=== PATIENT | female | born 1970 | race Caucasian/White ===

== ENCOUNTER 2018-10-10 17:57 | Emergency (ER) | payer BC ==
[2018-10-10 18:10] VITALS: BP 125/68; PULSE 97; TEMP 98.6; BMI 24.3
[2018-10-10] MEDS ORDERED: MAG HYDROX/AL HYDROX/SIMETH 30 ML UNIT-DOSE CUP PO ONE (18:12)
[2018-10-10] MEDS ORDERED: SODIUM CHLORIDE 1,000 ML IV STA (18:12)
[2018-10-10] MEDS ORDERED: ACETAMINOPHEN 1000 MG/100 ML VIAL (NON FORMULARY) IVPB ONE (18:12)
[2018-10-10] MEDS ORDERED: FAMOTIDINE 20 MG/50 ML IVPB 20 MG/50 ML MG IVPB ONE ×2 (18:12→18:24)
[2018-10-10] MEDS ORDERED: ONDANSETRON 4 MG/2 ML VIAL IVPB ONE (18:12)
[2018-10-10] MEDS ORDERED: ACETAMINOPHEN INJECTION 100 ML IVPB ONE (18:24)
[2018-10-10] MEDS ORDERED: ONDANSETRON 4 MG/2 ML VIAL ONE (18:24)
[2018-10-10] MEDS ORDERED: MAG HYDROX/AL HYDROX/SIMETH 30 ML UNIT-DOSE CUP ONE (18:24)
--- NOTE | 2018-10-10 18:40 | PDOC ---
History of Present Illness - General History Source: Patient Exam Limitations: No Limitations - History of Present Illness Initial Comments: 10/10/18 18:41 The patient is a 47 year old female with a significant past medical history of HTN who presents to the ED with several days of abdominal pain and vomiting since earlier today. 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 She states she went out last night with her girlfriends and had a couple of drinks. Patient developed multiple episodes of non bilious non bloody vomiting that started this morning. She also reports slight diarrhea this morning. The patient reports multiple days of epigastric pain. She states she took compazine earlier today with no relief of present symptoms. Patient reports a headache yesterday and took tylenol and benadryl, now resolved. Patient states she was recently prescribed amoxicillin by her dentist because she is scheduled for a dental procedure next week. Denies fever or chills. Denies chest pain or shortness of breath. Denies hematochezia. Denies nasal congestion or cough. Denies dysuria or change in urinary output. Denies any other symptoms. Surgical hx: , tonsillectomy, colectomy, right foot tendon repair ( 2017) PCP: Dr. Mcmahon <Ben Sainz - Last Filed: 10/10/18 18:41> - General History Source: Patient Exam Limitations: No Limitations <Anthony Leo - Last Filed: 10/10/18 18:47> - General Chief Complaint: Vomiting/Diarrhea Stated Complaint: VOMITING Time Seen by Provider: 10/10/18 18:12 Past History <Ben Sainz - Last Filed: 10/10/18 18:41> - Past Medical History COPD: No HTN: Yes Other medical history: GLUTEN INTOLERANT - Suicide/Smoking/Psychosocial Hx Smoking History: Never smoked Information on smoking cessation initiated: No Hx Alcohol Use: Yes (RARE) Drug/Substance Use Hx: No <Anthony Leo - Last Filed: 10/10/18 18:47> - Past Medical History Allergies/Adverse Reactions: Allergies Allergy/AdvReac Type Severity Reaction Status Date / Time gluten AdvReac Intermediate Verified 10/10/18 18:04 Home Medications: Ambulatory Orders Amlodipine Besylate 2.5 mg PO DAILY 12/28/18 Review of Systems - Review of Systems Able to Perform ROS?: Yes Comments:: 10/10/18 18:41 GENERAL/CONSTITUTIONAL: No fever or chills. No weakness. HEAD, EYES, EARS, NOSE AND THROAT: No change in vision. No ear pain or discharge. No sore throat. CARDIOVASCULAR: No chest pain or shortness of breath. RESPIRATORY: No cough, wheezing, or hemoptysis. GASTROINTESTINAL: abdominal pain, nausea, diarrhea, vomiting. No constipation. GENITOURINARY: No dysuria, frequency, or change in urination. MUSCULOSKELETAL: No joint or muscle swelling or pain. No neck or back pain. SKIN: No rash NEUROLOGIC: No headache, vertigo, loss of consciousness, or change in strength/ sensation. ENDOCRINE: No increased thirst. No abnormal weight change. HEMATOLOGIC/LYMPHATIC: No anemia, easy bleeding, or history of blood clots. ALLERGIC/IMMUNOLOGIC: No hives or skin allergy. All Other Systems: Reviewed and Negative <Ben Sainz - Last Filed: 10/10/18 18:41> *Physical Exam - Vital Signs Last Vital Signs Temp Pulse Resp BP Pulse Ox 98.6 F 97 H 18 125/68 100 10/10/18 18:04 10/10/18 18:04 10/10/18 18:04 10/10/18 18:04 10/10/18 18:04 - Physical Exam Comments: 10/10/18 18:42 GENERAL: Awake, alert, and fully oriented, in no acute distress HEAD: No signs of trauma EYES: PERRLA, EOMI, sclera anicteric, conjunctiva clear NECK: Normal ROM, supple, no lymphadenopathy, JVD, or masses ABDOMEN: + epigastric tenderness to palpation. Negative Nellis sign. Soft. No guarding, no rebound. No masses EXTREMITIES: Normal range of motion, no edema. No clubbing or cyanosis. No cords, erythema, or tenderness NEUROLOGICAL: Cranial nerves II through XII grossly intact. Normal speech, normal gait SKIN: Warm, Dry, normal turgor, no rashes or lesions noted. <Ben Sainz - Last Filed: 10/10/18 18:41> - Vital Signs Last Vital Signs Temp Pulse Resp BP Pulse Ox 98.6 F 97 H 18 125/68 100 10/10/18 18:04 10/10/18 18:04 10/10/18 18:04 10/10/18 18:04 10/10/18 18:04 <Anthony Leo - Last Filed: 10/10/18 18:47> Moderate Sedation - Procedure Monitoring Vital Signs: Procedure Monitoring Vital Signs Temperature 98.6 F 10/10/18 18:04 Pulse Rate 97 H 10/10/18 18:04 Respiratory Rate 18 10/10/18 18:04 Blood Pressure 125/68 10/10/18 18:04 O2 Sat by Pulse Oximetry (%) 100 10/10/18 18:04 <Ben Sainz - Last Filed: 10/10/18 18:41> - Procedure Monitoring Vital Signs: Procedure Monitoring Vital Signs Temperature 98.6 F 10/10/18 18:04 Pulse Rate 97 H 10/10/18 18:04 Respiratory Rate 18 10/10/18 18:04 Blood Pressure 125/68 10/10/18 18:04 O2 Sat by Pulse Oximetry (%) 100 10/10/18 18:04 <Anthony Leo - Last Filed: 10/10/18 18:47> ED Treatment Course - Medications Given in the ED: ED Medications Discontinued Medications Generic Name Dose Route Start Last Admin Trade Name Freq PRN Reason Stop Dose Admin Acetaminophen 1,000 mg 10/10/18 18:12 10/10/18 18:35 Ofirmev Injection - IVPB 10/10/18 18:13 1,000 mg ONCE ONE Administration Al Hydroxide/Mg Hydroxide 30 ml 10/10/18 18:12 10/10/18 18:30 Mylanta Oral Suspension - PO 10/10/18 18:13 30 ml ONCE ONE Administration Famotidine/Sodium Chloride 20 mg in 50 mls @ 100 mls/hr 10/10/18 18:12 18:29 Pepcid 20 Mg Premixed Ivpb - IVPB 10/10/18 18:41 100 mls/hr ONCE ONE Administration Ondansetron HCl 4 mg 10/10/18 18:12 10/10/18 18:26 Zofran Injection IVPB 10/10/18 18:13 4 mg ONCE ONE Administration <Ben Sainz - Last Filed: 10/10/18 18:41> - Medications Given in the ED: ED Medications Discontinued Medications Generic Name Dose Route Start Last Admin Trade Name Freq PRN Reason Stop Dose Admin Acetaminophen 1,000 mg 10/10/18 18:12 10/10/18 18:35 Ofirmev Injection - IVPB 10/10/18 18:13 1,000 mg ONCE ONE Administration Al Hydroxide/Mg Hydroxide 30 ml 10/10/18 18:12 10/10/18 18:30 Mylanta Oral Suspension - PO 10/10/18 18:13 30 ml ONCE ONE Administration Ondansetron HCl 4 mg 10/10/18 18:12 10/10/18 18:26 Zofran Injection IVPB 10/10/18 18:13 4 mg ONCE ONE Administration <Anthony Leo - Last Filed: 10/10/18 18:47> Medical Decision Making - Medical Decision Making 10/10/18 18:39 A portion of this note was documented by scribe services under my direction. I have reviewed the details of the note, within reason, and agree with the documentation with the following case summary and management plan written by me. Patient treated in the ED. Nursing notes are reviewed and incorporated into the medical decision-making. Vital signs reviewed. Peripheral IV access obtained by the nurse, laboratory studies are drawn and sent, reviewed and interpreted by myself. Vital Signs Temp Pulse Resp BP Pulse Ox 98.6 F 97 H 18 125/68 100 10/10/18 18:04 10/10/18 18:04 10/10/18 18:04 10/10/18 18:04 10/10/18 18:04 47-year-old female patient with past medical history of hypertension, cholecystectomy, section presents with 12 hours of nausea, vomiting and some loose stools. Patient reports that she's been exposed to multiple sick children. Yesterday, she went out with her girlfriends and had a few alcohol drinks. This morning, the patient has had numerous episodes of vomiting and no appetite. Denies fevers but does report some epigastric discomfort secondary to the vomiting. Denies dysuria hematuria. I suspect patient likely has viral gastroenteritis. We'll obtain labs, urine , urinalysis and treat with IV fluids and medications and reassess. 10/10/18 18:47 Pt signed out to oncoming ED attending Dr. Means for further management and disposition. <Anthony Leo - Last Filed: 10/10/18 18:47> *DC/Admit/Observation/Transfer - Attestations Scribe Attestion: 10/10/18 18:42 Documentation prepared by Ben Sainz, acting as medical record retrieval specialist for Anthony Leo MD <Ben Sainz - Last Filed: 10/10/18 18:41> <Anthony Leo - Last Filed: 10/10/18 18:47> - Discharge Dispostion Condition at time of disposition: Stable
[2018-10-10] MEDS ORDERED: SODIUM CHLORIDE 1,000 ML IV ONE (19:33)
[2018-10-10 19:48] LABS: HEMATOCRIT 43.4 % (32.4-45.2); HEMOGLOBIN 14.4 GM/dl (10.7-15.3); MCH 30.1 pg (25.7-33.7); MCHC 33.1 g/dl (32.0-36.0); MEAN CELL VOLUME 90.8 fl (80-96); MEAN PLT VOLUME 8.5 fl (7.5-11.1); PLATELET COUNT 454 K/MM3 (134-434); RBC 4.78 M/mm3 (3.60-5.2); RDW 13.1 % (11.6-15.6); WHITE BLOOD COUNT 14.8 K/mm3 (4.0-10.8)
[2018-10-10 20:03] LABS: ALBUMIN 4.3 g/dl (3.5-5.0); ALK PHOS 72 U/L (32-92); ANION GAP 11 MMOL/L (8-16); BILIRUBIN,TOTAL 1.5 mg/dl (0.2-1.0); BLOOD UREA NITROGEN 19 mg/dl (7-18); CALCIUM 9.9 mg/dl (8.4-10.2); CHLORIDE 103 mmol/L (98-107); CO2 23 mmol/L (22-28); CREATININE 0.7 mg/dl (0.6-1.3); GLUCOSE,RANDOM 108 mg/dl (74-106); SGOT/AST 52 U/L (10-42); SGPT/ALT 44 U/L (10-40); SODIUM 137 mmol/L (136-145); TOT PROT 7.4 g/dl (6.4-8.3)
--- NOTE | 2018-10-10 20:05 | PDOC ---
*Physical Exam - Vital Signs Last Vital Signs Temp Pulse Resp BP Pulse Ox 98.6 F 97 H 18 125/68 100 10/10/18 18:04 10/10/18 18:04 10/10/18 18:04 10/10/18 18:04 10/10/18 18:04 ED Treatment Course - LABORATORY CBC & Chemistry Diagram: 10/10/18 18:21 10/10/18 18:21 - ADDITIONAL ORDERS Additional order review: 10/10/18 18:21 RBC 4.78 MCV 90.8 MCHC 33.1 RDW 13.1 MPV 8.5 Neutrophils % No Result Required. Lymphocytes % No Result Required. - RADIOLOGY Radiology Studies Ordered: Category Date Time Status ABDOMEN & PELVIS CT WITH CONTR [CT] Stat CT Scan 10/10/18 20:02 Ordered - Medications Given in the ED: ED Medications Discontinued Medications Generic Name Dose Route Start Last Admin Trade Name Freq PRN Reason Stop Dose Admin Acetaminophen 1,000 mg 10/10/18 18:12 10/10/18 18:35 Ofirmev Injection - IVPB 10/10/18 18:13 1,000 mg ONCE ONE Administration Al Hydroxide/Mg Hydroxide 30 ml 10/10/18 18:12 10/10/18 18:30 Mylanta Oral Suspension - PO 10/10/18 18:13 30 ml ONCE ONE Administration Famotidine/Sodium Chloride 20 mg in 50 mls @ 100 mls/hr 10/10/18 18:12 18:29 Pepcid 20 Mg Premixed Ivpb - IVPB 10/10/18 18:41 100 mls/hr ONCE ONE Administration Sodium Chloride 1,000 mls @ 1,000 mls/hr 10/10/18 18:12 10/10/18 18:25 Normal Saline - IV 10/10/18 19:11 1,000 mls/hr ASDIR STA Administration Ondansetron HCl 4 mg 10/10/18 18:12 10/10/18 18:26 Zofran Injection IVPB 10/10/18 18:13 4 mg ONCE ONE Administration Progress Note - Progress Note Progress Note: Care of this patient was transferred to md from Dr. Leo at 1900 hrs. Patient is a 47-year-old female who comes in complaining of nausea vomiting epigastric pain radiating to the back, patient was clinically dehydrated on arrival here in the emergency department. She has been hydrated and workup is in progress including CBC, and patient was given lives antiemetics and magnesium. 20:00 On reevaluation patient is feeling better no further vomiting however on my exam she is still operator over the left upper quadrant area. There is no guarding or rebound. We'll obtain a CT of her abdomen and pelvis to rule out pancreatitis or any other acute pathology. Patient does have a mildly elevated white count of 14.8 with a left shift. Patient got a CAT scan that shows a fatty liver her liver enzymes are also mildly elevated patient was made aware of both of these findings and told to follow it up. Patient said she has an appointment with her primary for next weekend and will follow it up then. Otherwise there is some evidence of some mild colitis most likely viral in etiology given her vomiting. I will send a prescription for Zofran to her pharmacy and she will follow-up with her primary care doctor *DC/Admit/Observation/Transfer Diagnosis at time of Disposition: Dehydration Nausea and vomiting Qualifiers: Vomiting type: unspecified Vomiting Intractability: non-intractable Qualified Code(s): R11.2 - Nausea with vomiting, unspecified - Discharge Dispostion Disposition: HOME Condition at time of disposition: Stable Decision to Admit order: No - Referrals - Patient Instructions Additional Instructions: Clear liquids only for the next 6 hours.. After that if you have had no further vomiting you may have bananas, rice, applesauce, or toast. If no further vomiting for another 8 hours you may have regular food. If you vomit again then nothing to eat or drink for 2 hours. then start back with the clear liquids. Return to the emergency department immediately with ANY new, persistent or worsening symptoms. You MUST call and follow up with your doctor tomorrow if not better. Please make sure your doctor reviews the results of your emergency evaluation. It is very important that you take a copy of her CAT scan and blood work with you when you go see your doctor and follow-up the abnormal liver findings on the CAT scan and blood work - Post Discharge Activity
[2018-10-10 20:09] LABS: POTASSIUM 4.8 mmol/L (3.5-5.1)
[2018-10-10 20:30] LABS: PLATELET ESTIMATE SLT INCREASE
[2018-10-10 21:43] LABS: PH,URINE 7.5 (4.5-8); URINE APPEARANCE Clear; URINE BILIRUBIN Negative (NEGATIVE); URINE COLOR Yellow; URINE GLUCOSE (UA) Negative (NEGATIVE); URINE KETONE 3+ (NEGATIVE); URINE LEUK ESTERASE Negative (NEGATIVE); URINE NITRITE Negative (NEGATIVE); URINE PROTEIN 1+ (NEGATIVE); URINE UROBILINOGEN 0.2 (0.2-1.0)
[2018-10-10 21:49] LABS: HCG,QUALITATIVE URINE Negative
[2018-10-10 22:20] LABS: URINE BACTERIA 1+ /hpf (NEGATIVE); URINE WBC 0-2 (0-5)
== END 2018-10-10 22:12 | disposition home or self-care (01) ==
LOC: FER 17:57
PROC: 3E033NZ Introduction of Analgesics, Hypnotics, Sedatives into Peripheral Vein, Percutaneous Approach (ICD-10-PCS; principal; 2018-10-10)
PROC: 3E0337Z Introduction of Electrolytic and Water Balance Substance into Peripheral Vein, Percutaneous Approach (ICD-10-PCS; 2018-10-10)
PROC: 3E033GC Introduction of Other Therapeutic Substance into Peripheral Vein, Percutaneous Approach (ICD-10-PCS; 2018-10-10)
DX: E86.0 Dehydration (principal); R11.2 Nausea with vomiting, unspecified; I10 Essential (primary) hypertension
CPT/HCPCS: 36415; 74177-TC; 80053; 81003; 81015; 83735; 84703; 85025; 99282-25; J0131; J7030

== ENCOUNTER 2019-02-19 05:01 | Day surgery (SDC) | payer BC ==
[2019-02-18 08:10] VITALS: BMI 23.5
[2019-02-19] MEDS ORDERED: ceFAZolin SODIUM 1 GM VIAL IVPB ONE (08:33)
[2019-02-19] MEDS ORDERED: BUPIVACAINE HCL/PF 0.5% (5MG/ML) 10 ML VIAL ONE (09:04)
[2019-02-19] MEDS ORDERED: LIDOCAINE HCL 1%, 10 MG/ML (20ML VIAL) ONE (09:04)
[2019-02-19] MEDS ORDERED: PROPOFOL 20 ML ONE ×2 (09:23)
[2019-02-19] MEDS ORDERED: MIDAZOLAM HCL 2 MG/2 ML SINGLE DOSE VIAL ONE (09:24)
--- NOTE | 2019-02-19 09:31 | HP ---
Satellite [facility] - Chief Complaint Chief Complaint: right hand pain, numbness, tingling, weakness History of Present Illness: right CTS History Source: Patient Limitations to Obtaining History: No Limitations - Past Medical History Allergies/Adverse Reactions: Allergies Allergy/AdvReac Type Severity Reaction Status Date / Time cortisone Allergy Verified 02/19/19 08:29 gluten AdvReac Intermediate Verified 02/19/19 08:29 ...LMP Comment: irregular (7months) - Current Medications Current Medications: Home Medications Medication Instructions Recorded Amlodipine Besylate 2.5 mg PO DAILY 10/10/18 Nadolol 40 mg PO DAILY 02/18/19 Pramipexole Dihydrochloride 0.25 mg PO HS 02/18/19 [Mirapex -] Rizatriptan Benzoate [Rizatriptan] 10 mg PO PRN PRN 02/18/19 Satellite Physical Exam - Physical Examination Vital Signs: Vital Signs Period Temp Pulse Resp BP Sys/Carbone Pulse Ox Last 24 Hr 98.4 F-98.4 F 73-73 20-20 115-115/84-84 100 General Appearance: Well Nourished ENT: Clear Lung: Clear to auscultation Heart: Regular rate & rhythm Breasts: Soft Abdomen: Soft Extremities: No edema Satellite Impression/Plan - Impression/Plan Impression: right CTS Operative Procedure: right CTR, tenosynovectomy Date to be Performed: 02/19/19
[2019-02-19] MEDS ORDERED: ceFAZolin SODIUM 1 GM VIAL ONE (09:33)
[2019-02-19] MEDS ORDERED: SODIUM CHLORIDE 0.9% P/F 10 ML VIAL IJ ONE (09:33)
[2019-02-19] MEDS ORDERED: BUPIVACAINE HCL/PF (5 MG/ML) 30 ML VIAL IJ ONE (09:49)
[2019-02-19] MEDS ORDERED: LIDOCAINE 1% P/F 10 MG/ML VIAL PNB ONE (09:49)
--- NOTE | 2019-02-19 10:20 | OP ---
Operative Note - Note: Operative Date: 02/19/19 Pre-Operative Diagnosis: right CTS, tenosynovitis Operation: right CTR, tenosynovectomy Post-Operative Diagnosis: Same as Pre-op Surgeon: Maldonado Perry Anesthesiologist/POULTRY SCIENTIST: Alec Lundberg Anesthesia: Local, MAC Specimens Removed: tenosynovium Estimated Blood Loss (mls): 0 Drains, Volume Out (mls): 0 Blood Volume Replaced (mls): 0 Fluid Volume Replaced (mls): 500 Operative Report Dictated: Yes
[2019-02-19 11:00] VITALS: TEMP 97.5
[2019-02-19 11:53] VITALS: BP 125/75; PULSE 56
--- NOTE | 2019-02-19 11:54 | SPEC ---
DATE OF OPERATION: 02/19/2019 PREOPERATIVE DIAGNOSIS: Right carpal tunnel syndrome. POSTOPERATIVE DIAGNOSIS: Right carpal tunnel syndrome. PROCEDURE: Right carpal tunnel release and tenosynovectomy. SURGEON: Maldonado Perry MD ASSISTANTS: None. ANESTHESIOLOGIST: Alec Lundberg MD DRAINS: None. COMPLICATIONS: None. SPECIMENS: Tenosynovium, right wrist. BLOOD LOSS: None. BLOOD GIVEN: None. FLUID REPLACEMENT: PlasmaLyte, 500 mL. INDICATIONS: This patient is a 48-year-old female with preoperative diagnosis of severe right carpal tunnel syndrome, tenosynovitis. After understanding the potential risks, complications, alternatives and benefits of surgery versus nonsurgical treatment, the patient elected to undergo this procedure. DESCRIPTION OF PROCEDURE: The patient was brought to the operating room, peripheral IV placed and intravenous sedation was given. One gram of intravenous Ancef was given. MAC anesthesia was induced. A tourniquet was applied to the right upper arm and the right upper extremity was prepped and draped in sterile fashion. The entire case was done under 3.8 loupe magnification. A marking pen was utilized to simeon out a longitudinal incision in an already existing skin crease. Twenty mL of 0.5% Marcaine mixed with 1% Lidocaine was injected in and around the surgical incision. The right upper extremity was elevated, exsanguinated with an Esmarch bandage and the tourniquet inflated to 250 mmHg. A No. 15 scalpel blade was utilized to cut down through the skin. Subcutaneous hemostasis was achieved with the bipolar cautery. Dissection was done through the superficial palmar fascia. Self-retaining retractors were placed into the wound. Under direct visualization, the transverse carpal ligament was transected with a No. 15 scalpel blade, exposing the median nerve and the contents of the carpal tunnel. The distal and proximal extents of the release were completed with a Littler scissor and checked with irrigation and my small finger. They were seen to be complete. Limited dissection was done on the radial side of the median nerve and more extensive dissection was done on the ulnar side of the median nerve. The patients nerve was seen to be quite compressed by epineurium and therefore a limited epineurotomy was performed. A Ragnell retractor was used to gently retract the median nerve in a radial direction. The patient had a lot of tenosynovitis and therefore a tenosynovectomy was performed off all 9 flexor tendons. This was passed off the field as tenosynovium right wrist. The floor of the carpal tunnel was checked. There were no abnormal masses or ganglion cysts. The area was copiously irrigated and washed out and closure begun. Undyed 4-0 Vicryl was used to close the deep dermal layer. Final skin reapproximation was done with horizontal mattress 4-0 nylon sutures. The area was then washed and dried, covered with Xeroform, 4x4s, fluffs between the fingers, Webril and a 4-inch plaster roll was utilized to make a volar splint, which was then wrapped with Mik and Coban. The tourniquet was taken down after a total tourniquet time of 20 minutes. There were no complications during the case. The patient tolerated the procedure well and was brought to the ambulatory recovery room in stable condition. Deejay [id number]
--- NOTE | 2019-02-24 13:07 | PATH ---
Surgical Pathology Report Patient Name: ALBARO VALLECILLO [facility]. Rec. #: [id number] /Age/Gender: 1970 (Age: 48) / F Account: [id number] Location: [facility] SURGICAL Taken: 02/19/2019 Received: 02/19/2019 Reported: 02/20/2019 Physicians: Maldonado Perry M.D. Specimen(s) Received TENOSYNOVIUM Clinical History Carpel tunnel syndrome Final Diagnosis TENOSYNOVIUM, RIGHT, CARPAL TUNNEL RELEASE: BENIGN DENSE FIBROCONNECTIVE TISSUE. Electronically Signed Anita Saldana M.D. Gross Description Received in formalin, labeled "tenosynovium" are multiple avelar, irregular portions of soft tissue 2.5 x 2.5 x 0.3 cm in aggregate. The specimen is submitted in toto in one cassette. BATSHEVA/02/19/2019 abdullahi/02/19/2019
== END 2019-02-19 12:05 | disposition home or self-care (01) ==
LOC: JASU-SURG 05:01
PROVIDERS: ATTEND Orthopaedic Surgery
PROC: 01N50ZZ Release Median Nerve, Open Approach (ICD-10-PCS; principal; 2019-02-19 09:30)
DX: G56.01 Carpal tunnel syndrome, right upper limb (principal)
CPT/HCPCS: 84703; 88304-TC; 94760

== ENCOUNTER 2022-03-26 05:04 | Day surgery (SDC) | payer BC ==
[2022-03-21 11:47] VITALS: BMI 24.7
[2022-03-26 10:33] VITALS: TEMP 97
[2022-03-26 11:00] VITALS: BP 104/76; PULSE 75
== END 2022-03-26 11:15 | disposition home or self-care (01) ==
LOC: JASU-ENDO 05:04
PROVIDERS: ATTEND Internal Medicine Gastroenterology
PROC: 0DBL8ZX Excision of Transverse Colon, Via Natural or Artificial Opening Endoscopic, Diagnostic (ICD-10-PCS; 2022-03-26)
PROC: 0DBN8ZX Excision of Sigmoid Colon, Via Natural or Artificial Opening Endoscopic, Diagnostic (ICD-10-PCS; 2022-03-26)
PROC: 0DBP8ZX Excision of Rectum, Via Natural or Artificial Opening Endoscopic, Diagnostic (ICD-10-PCS; principal; 2022-03-26 10:00)
DX: Z12.11 Encounter for screening for malignant neoplasm of colon (principal); K64.8 Other hemorrhoids; K62.1 Rectal polyp; D12.5 Benign neoplasm of sigmoid colon; D12.3 Benign neoplasm of transverse colon
CPT/HCPCS: 81025; 88305-TC

== ENCOUNTER 2024-02-12 03:07 | Emergency (ER) | payer BC ==
[2024-02-12 03:14] VITALS: RESP 18; TEMP 98.8; BMI 23.5
[2024-02-12] MEDS ORDERED: FAMOTIDINE 20 MG/50 ML IVPB 20 MG/50 ML MG IVPB ONE (03:30)
[2024-02-12] MEDS ORDERED: ONDANSETRON 4 MG/2 ML VIAL ONE (03:30)
[2024-02-12] MEDS: SODIUM CHLORIDE 1,000 ML IV STA ×2 (03:38→05:10)
[2024-02-12] MEDS: FAMOTIDINE 20 MG/50 ML IVPB 20 MG/50 ML MG IVPB ONE (03:38)
[2024-02-12] MEDS: ONDANSETRON 4 MG/2 ML VIAL IVPUSH ONE (03:38)
[2024-02-12 04:34] LABS: BASO % 0.1 % (0-2.0); EOS % 2.1 % (0-4.5); HEMATOCRIT 43.3 % (32.4-45.2); HEMOGLOBIN 14.7 GM/dL (10.7-15.3); LYMPH % 4.7 % (8-40); MCH 30.8 pg (25.7-33.7); MCHC 34.1 g/dl (32.0-36.0); MEAN CELL VOLUME 90.3 fl (80-96); MEAN PLT VOLUME 8.4 fl (7.5-11.1); MONO % 4.2 % (3.8-10.2); NEUT % 88.9 % (42.8-82.8); PLATELET COUNT 328 10^3/uL (134-434); RBC 4.79 M/mm3 (3.60-5.2); RDW 13.5 % (11.6-15.6); WHITE BLOOD COUNT 6.8 K/mm3 (4.0-10.0)
[2024-02-12 04:52] LABS: POTASSIUM 3.6 mmol/L (3.5-5.1)
[2024-02-12 04:54] LABS: CALCIUM 8.9 mg/dL (8.5-10.1)
[2024-02-12 04:55] LABS: ALBUMIN 3.4 g/dl (3.4-5.0); BLOOD UREA NITROGEN 30.4 mg/dL (7-18)
[2024-02-12 04:58] LABS: CREATININE 0.8 mg/dL (0.55-1.3)
[2024-02-12 05:00] LABS: BILIRUBIN,TOTAL 0.6 mg/dL (0.2-1); TOT PROT 6.6 g/dl (6.4-8.2)
[2024-02-12 06:44] VITALS: BP 106/64; PULSE 90
== END 2024-02-12 06:44 | disposition home or self-care (01) ==
LOC: FER 03:07
PROC: 3E033GC Introduction of Other Therapeutic Substance into Peripheral Vein, Percutaneous Approach (ICD-10-PCS; principal; 2024-02-12)
PROC: 3E030GC Introduction of Other Therapeutic Substance into Peripheral Vein, Open Approach (ICD-10-PCS; 2024-02-12)
PROC: 3E0337Z Introduction of Electrolytic and Water Balance Substance into Peripheral Vein, Percutaneous Approach (ICD-10-PCS; 2024-02-12)
PROC: 3E0337Z Introduction of Electrolytic and Water Balance Substance into Peripheral Vein, Percutaneous Approach (ICD-10-PCS; 2024-02-12)
DX: K52.9 Noninfective gastroenteritis and colitis, unspecified (principal); R11.2 Nausea with vomiting, unspecified; R10.84 Generalized abdominal pain
CPT/HCPCS: 36415; 80053; 83690; 85025; 99284-25